=== PATIENT | female | born 2000 | race African-American/Black ===

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

== ENCOUNTER 2019-10-21 17:09 | Emergency (ER) | payer OTHER, SELFPAY | END 2019-10-21 17:43 | disposition home or self-care (01) | LOC: NAV ERS 17:09 | DX: J98.01 Acute bronchospasm (principal) | CPT/HCPCS: 93005 ==

== ENCOUNTER 2020-08-20 08:10 | Emergency (ER) | payer SELFPAY ==
[2020-08-20 09:07] LABS: #Basophils 0.1 thou/uL (0.0-0.2); #Eosinphils 0.1 thou/uL (0.0-0.7); #Lymphocytes 2.7 thou/uL (1.20-3.40); #Monocytes 0.5 thou/uL (0.11-0.59); #Neutrophils 4.2 thou/uL (1.40-6.50); %Basophils 0.9 % (0.0-1.0); %Eosinophils 1.7 % (0.0-10.0); %Lymphocytes 35.2 % (21.0-51.0); %Monocytes 6.6 % (0.0-10.0); %Neutrophils 55.7 % (42.0-75.0); Hemoglobin 12.2 g/dL (12.0-16.0); Mean Corpuscular HGB CONC 31.4 g/dL (32.0-36.0); Mean Corpuscular Hemoglobin 26.7 pg (27.0-31.0); Platelet Count 285 thou/uL (130-400); RBC Distribution Width 12.4 % (11.5-14.5); Red Blood Cell (RBC) Count 4.59 mill/uL (4.20-5.40); White Blood Cell (WBC) Count 7.6 thou/uL (4.8-10.8)
[2020-08-20 09:15] LABS: BHCG - Serum Negative (NEGATIVE); Pregs Control Bar Appear? YES (CONTROL BAR)
[2020-08-20 09:21] LABS: ALT (SGPT) 12 U/L (8-55); AST (SGOT) 15 U/L (5-34); Albumin 3.9 g/dL (3.5-5.0); Alkaline Phosphatase 83 U/L (40-110); Anion Gap 13 mmol/L (10-20); BUN (Urea Nitrogen) 11 mg/dL (7.0-18.7); Bilirubin, Total 0.6 mg/dL (0.2-1.2); Calc. Creatinine Clearance 0 mL/min (70-130); Calcium 9.5 mg/dL (7.8-10.44); Carbon Dioxide 27 mmol/L (22-29); Chloride 103 mmol/L (98-107); Globulin 3.9 g/dL (2.4-3.5); Glucose 116 mg/dL (70-105); Protein, Total 7.8 g/dL (6.0-8.3); Sodium 139 mmol/L (136-145)
== END 2020-08-20 09:50 | disposition home or self-care (01) ==
LOC: NAV ERS 08:10
DX: R20.2 Paresthesia of skin (principal); J45.909 Unspecified asthma, uncomplicated
CPT/HCPCS: 80053; 84703; 85025; 99284

== ENCOUNTER 2021-02-28 20:47 | Emergency (ER) | payer SELFPAY ==
[2021-02-28] MEDS ORDERED: Ibuprofen 800 MG TAB ONE (21:33)
== END 2021-02-28 21:45 | disposition home or self-care (01) ==
LOC: NAV ERS 20:47
DX: J02.0 Streptococcal pharyngitis (principal); J45.909 Unspecified asthma, uncomplicated
CPT/HCPCS: 87430; 99283

== ENCOUNTER 2021-03-19 16:36 | Emergency (ER) | payer MEDICAID, SELFPAY ==
[2021-03-19 17:01] LABS: Bilirubin Small (Negative); Blood, Urine Negative (Negative); Clarity Cloudy (Clear); Glucose, Urine (Dipstick) Negative (Negative); Ketone, Urine Negative (Negative); Leukocyte Small (Negative); Nitrite Negative (Negative); Protein, Urine (Dipstick) 30 mg/dL (Neg-Trace)
[2021-03-19 17:03] LABS: Specific Gravity, Urine 1.031 (1.002-1.036)
[2021-03-19 17:04] LABS: Pregnancy Test - Urine (BHCG) Negative (Negative); Pregu Control Background? CLEAR/WHITE (CLR/WHITE); Pregu Control Bar Appear? YES (CONTROL BAR); Specific Gravity 1.031 (1.002-1.036)
[2021-03-19 17:11] LABS: RBC/HPF None Seen HPF (0-3)
[2021-03-19 17:12] LABS: Bacteria/HPF 2+ HPF (None Seen); Mucous/LPF 2+ LPF (<2+); Trichomonas/HPF 1+ HPF (None Seen); Yeast-Budding 1+ HPF (None Seen)
[2021-03-19 17:13] LABS: Other Microscopic Description TRICHOMONAS PRESENT
== END 2021-03-19 17:12 | disposition home or self-care (01) ==
LOC: NAV ERS 16:36
DX: R10.13 Epigastric pain (principal); J45.909 Unspecified asthma, uncomplicated
CPT/HCPCS: 81003; 81015; 81025; 99284

== ENCOUNTER 2021-07-07 14:01 | Emergency (ER) | payer MEDICAID ==
[2021-07-08 10:24] LABS: SARS-CoV-2 PCR by NAA DETECTED (NotDetected)
== END 2021-07-07 15:02 | disposition home or self-care (01) ==
LOC: NAV ERS 14:01
DX: U07.1 COVID-19 (principal); J45.909 Unspecified asthma, uncomplicated
CPT/HCPCS: 99284; U0003; U0005

== ENCOUNTER 2022-03-12 12:22 | Emergency (ER) | payer SELFPAY ==
[2022-03-12 12:52] LABS: #Basophils 0.1 thou/uL (0.0-0.2); #Eosinphils 0.1 thou/uL (0.0-0.7); #Lymphocytes 3.7 thou/uL (1.20-3.40); #Monocytes 0.9 thou/uL (0.11-0.59); #Neutrophils 4.6 thou/uL (1.40-6.50); %Basophils 1.3 % (0.0-1.0); %Eosinophils 0.9 % (0.0-10.0); %Lymphocytes 39.1 % (21.0-51.0); %Monocytes 9.3 % (0.0-10.0); %Neutrophils 49.4 % (42.0-75.0); Hemoglobin 11.3 g/dL (12.0-16.0); Mean Corpuscular HGB CONC 30.6 g/dL (32.0-36.0); Mean Corpuscular Volume 88.3 fL (78.0-98.0); Mean Platelet Volume 8.6 fL (7.4-10.4); Platelet Count 307 thou/uL (130-400); RBC Distribution Width 13.1 % (11.5-14.5); Red Blood Cell (RBC) Count 4.18 mill/uL (4.20-5.40); White Blood Cell (WBC) Count 9.4 thou/uL (4.8-10.8)
[2022-03-12 13:05] LABS: ALT (SGPT) 12 U/L (8-55); AST (SGOT) 13 U/L (5-34); Albumin 3.7 g/dL (3.5-5.0); Alkaline Phosphatase 71 U/L (40-110); Anion Gap 14 mmol/L (10-20); BUN (Urea Nitrogen) 9 mg/dL (7.0-18.7); Bilirubin, Total 0.4 mg/dL (0.2-1.2); Calc. Creatinine Clearance 0 mL/min (70-130); Calcium 9.1 mg/dL (7.8-10.44); Carbon Dioxide 26 mmol/L (22-29); Chloride 105 mmol/L (98-107); Estimated GFR 114; Globulin 3.8 g/dL (2.4-3.5); Glucose 82 mg/dL (70-105); Potassium 3.5 mmol/L (3.5-5.1); Protein, Total 7.5 g/dL (6.0-8.3); Sodium 141 mmol/L (136-145)
[2022-03-12 13:08] LABS: BHCG - Serum Negative (NEGATIVE); Pregs Control Bar Appear? YES (CONTROL BAR)
[2022-03-12] MEDS ORDERED: Ketorolac Tromethamine 30 MG/ML VIAL ONE (13:16)
[2022-03-12] MEDS ORDERED: Aspirin Chewable 81 MG TAB ONE (13:16)
== END 2022-03-12 13:43 | disposition home or self-care (01) ==
LOC: NAV ERS 12:22
DX: R07.2 Precordial pain (principal)
CPT/HCPCS: 71045; 80053; 84484; 84703; 85025; 85379; 93005; 94760; 96374; J1885